=== PATIENT | female | born 1950 | race Caucasian/White ===

== ENCOUNTER → 2016-08-21 | Outpatient (CLI) | payer OTHER ==
[~2016-08-21] MED LIST: BIOTIN 1000MCG PO; CHOL100010 PO; CYCL0.05 OP; LORA-741 PO; LOSA1TAB38 PO; MECL1TAB42 PO; METO-217 PO; METR0.754; NYST1POW7; OMEGA 3/FISH OIL PO; OMEP20TA PO; TRIA0.1C55; VALA1TAB2 PO
--- NOTE | 2016-08-21 12:04 | DIAGNOSTIC IMAGING REPORT ---
VIDEO SWALLOW HISTORY: DYSPHAGIA TECHNIQUE: Video fluoroscopic evaluation of swallowing was performed in the AP and lateral projections by the speech pathology staff. The patient is fed nectar-thick and thin liquid barium, a barium coated wafer, and barium pudding. FLUOROSCOPY TIME: 1.4 minutes. A cine loop was submitted. COMPARISON STUDY: None. FINDINGS: There is normal hyoid excursion and epiglottic deflection. A few episodes of penetration without aspiration. There is mild vallecular residue seen within the majority of the study. Mild esophageal dysmotility. IMPRESSION: 1. No aspiration identified. 2. Please see the speech pathologist report for detailed findings and recommendations. Electronically signed by: Star Zazueta M.D. 08/21/2016 12:02 PM Dictated Date/Time: 08/21/2016 12:00 PM
--- NOTE | 2016-08-21 12:15 | SWALLOWING EVALUATION ---
HISTORY: This 65 year-old woman, from home, was referred for a VFSS at [facility] secondary to complaints of feeling pain in her throat on occasion when swallowing. She states that no food in particular given her difficulty but that she often feels the pain when she "gulps" her morning coffee. Currently the patient's diet level is regular with thins. PROCEDURE: The patient was seen in the Radiology Department of [facility] for the VFSS. Cursory examination of the oral cavity revealed adequate dentition. Movement of the articulators was WNL. The patient was seated on a standard chair and was viewed in both the Anterior-Posterior (A-P) and Lateral planes. Volitional phonation exercises completed in the A-P plane revealed bilateral vocal fold movement and vocal intensity within functional limits. In the lateral plane, the patient was given the following barium-infused boluses: 1 tsp thin barium with oral hold 1x, self presented single cup swallow-thin barium 1x, self presented serial cup swallow 1x. 1 tsp nectar thick barium with oral hold 1x, self presented single cup swallow- nectar thick barium 1x, self presented serial cup swallows 1x. 1 tsp barium pudding-self presented 1x. Cracker with barium paste 1x. In the A-P view, pt was given 1 tsp nectar thick barium and 1 tsp barium pudding with esophageal scan. RESULTS: Oral Phase: Pt. had no labial escape of any food or liquid items presented. Pt. demonstrated a cohesive bolus between tongue and palatal seal. Timely and efficient chewing and mashing was observed with all consistencies as well as brisk tongue motion and complete oral clearance. Initiation of pharyngeal swallow began with bolus head at posterior angle of hyoid excursion. Overall WFL for oral phase of swallow. Pharyngeal Phase: Soft Palate Elevation was complete for all boluses. Laryngeal elevation was WFL demonstrating complete movement of thyroid cartilage with complete approximation of arytenoids to epiglottic base. Complete Anterior Hyoid excursion was observed as well as complete epiglottic inversion. Laryngeal Vestibular closure was complete and no air or barium noted in laryngeal vestibule. Tongue base retraction was noted with all consistencies and tongue base made effective contact with posterior pharyngeal wall throughout study. No pharyngeal residue was observed resulting in complete pharyngeal clearance of all tested items. Esophageal Phase: Opening and closing of the UES was timely and efficient. GRAIN MERCHANDISER noted some esophageal dysmotility which would be contributing to his complaints of food sticking in his throat. . SUMMARY/RECOMMENDATIONS: Overall pt. presented as WFL. Results of this study indicate no oral or pharyngeal dysphagia. Recommending continuation of regular "slippery" diet with thin liquids. All results and recommendations were discussed with the pt. at length and written diet material with GERD precautions provided. Thank you for referral of this patient. Please contact me at if any additional information is needed.
== END | disposition home or self-care (01) ==
LOC: C.RAD 11:16
PROVIDERS: ATTEND Otolaryngology
DX: R13.10 Dysphagia, unspecified (principal)

== ENCOUNTER 2022-01-23 18:10 | Observation (INO) ==
[2022-01-23 19:00] LABS: Basophils # (auto) 0.08 K/uL (0-0.2); Basophils % (auto) 0.6 %; Eosinophils # (auto) 0.13 K/uL (0-0.50); Eosinophils % (auto) 0.9 %; Hematocrit (blood only) 35.7 % (34.1-44.9); Hemoglobin 12.1 g/dl (12.0-16.0); Immature Granulocytes # (auto) 0.09 K/uL (0.00-0.02); Immature Granulocytes % (auto) 0.6 %; Mean Corpuscular Hemoglobin 29.1 pg (25.0-34.0); Mean Corpuscular Hgb Conc 33.9 g/dL (32.0-36.0); Mean Corpuscular Volume 85.8 fL (80.0-100.0); Mean Platelet Volume 9.4 fL (9.4-12.3); Monocytes # (auto) 1.14 K/uL (0.24-0.82); Neutrophils # (auto) 9.09 K/uL (1.4-6.5); Neutrophils % (auto) 63.9 %; Platelet Count 340 K/uL (130-400); RDW Coefficient of Variation 13.5 % (11.5-14.5); RDW Standard Deviation 42.3 fL (36.4-46.3); Red Blood Count 4.16 M/uL (3.93-5.22); White Blood Count 14.23 K/ul (4.8-10.8)
[2022-01-23 19:23] LABS: Albumin Globulin Ratio 1.3 (0.9-2); Albumin Level 4.5 gm/dl (3.4-5.0); BUN Creatinine Ratio 23.1 (10-20); Bilirubin,Total 0.9 mg/dl (0.2-1.0); Calcium 9.6 mg/dl (8.5-10.1); Creatinine Clr Calc Pharmacy 65.6 ml/min; Globulin 3.6 gm/dl (2.5-4.0); Potassium 3.5 mmol/L (3.5-5.1); Total Protein 8.1 gm/dl (6.0-8.3)
[2022-01-23] MEDS ORDERED: SODIUM CHLORIDE 0.9% 1000ML 1,000 ML IV ONE (23:29)
[2022-01-23] MEDS ORDERED: PIPERACILLIN/TAZOBACTAM 4.5 GM/120 ML BAG IV ONE (23:29)
[2022-01-23] MEDS ORDERED: ACETAMINOPHEN 1,000 MG/100 ML VIAL IV STA (23:29)
--- NOTE | 2022-01-24 00:02 | History & Physical Report ---
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 intake/home diuretic Rx difficult intubation as per records GMF Bowel rest Zosyn Surgery consult Re: Complicated diverticulitis IVF, hold home diuretic for now while patient n.p.o. Basal bolus insulin adjusted for n.p.o. status, ISS BG goal 1 10-1 40, update hemoglobin A1c DVT prophylaxis. Lovenox subcu Full code Text document was generated using [employer] voice recognition software. It may contain grammatical or spelling errors. Kindly contact undersigned for clarification of any documentation item in question. History of Present Illness Chief Complaint: abdominal pain Primary Care Provider: Dr. Farmer History obtained from patient, family, and records. Medical history significant for hypertension, hyperlipidemia, DM2 on oral medications, GERD, colonic diverticulosis, difficult intubation as per records. Last confinement 2011 for flulike symptoms attributed to EBV infection and Lyme disease. 1 week history of achy left lower abdominal pain without black/bloody stools. Patient with nausea, no emesis. Fever, no chills. No prior episodes. Poor appetite. Outpatient COVID-19 test was negative. Patient seen at PCP's office yesterday. Outpatient CT abdomen pelvis showed : 1. Findings of acute diverticulitis with a 1.4 cm intramural abscess versus phlegmonous change. No drainable collection or intraperitoneal free air. 2. Small hiatal hernia. Patient directed to ER for evaluation. IV Zosyn administered at the ER. 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 Allergies Allergy/AdvReac Type Severity Reaction Status Date / Time adhesive Allergy Intermediate BLISTERS Verified 01/24/22 00:23 ibuprofen Allergy Unknown enlarged Verified 01/24/22 00:23 liver ketorolac Allergy Unknown Unknown Verified 01/24/22 00:23 Sulfa (Sulfonamide Allergy Unknown Rash Verified 01/24/22 00:23 Antibiotics) Nitrofuran Analogues AdvReac Intermediate UNCERTAIN Unverified 01/24/22 00:23 aspirin AdvReac Unknown Unknown Verified 01/24/22 00:23 Home Medications Medication Instructions Recorded Confirmed Type cholecalciferol (vitamin D3) 25 50 mcg PO QAM 08/15/19 01/24/22 History mcg (1,000 unit) tablet (Vitamin D3) hydrochlorothiazide 25 mg tablet 25 mg PO QAM 08/15/19 01/24/22 History losartan 100 mg tablet 100 mg PO QAM 08/15/19 01/24/22 History magnesium 250 mg tablet 250 mg PO HS 08/15/19 01/24/22 History metoprolol succinate 50 mg 100 mg PO QAM 08/15/19 01/24/22 History tablet,extended release 24 hr metronidazole 0.75 % topical cream 1 applic topical BID 08/15/19 01/24/22 History (MetroCream) omeprazole 20 mg delayed 20 mg PO QAM 08/15/19 01/24/22 History release,disintegrating tablet rosuvastatin 10 mg tablet 10 mg PO QAM 08/15/19 01/24/22 History acetaminophen 500 mg tablet 1,000 mg PO Q6H PRN Pain 01/24/22 01/24/22 History (Tylenol Extra Strength) aspirin 81 mg tablet,delayed 81 mg PO DAILY 01/24/22 01/24/22 History release biotin 400 mcg tablet 400 mcg PO DAILY 01/24/22 01/24/22 History cyclosporine 0.05 % eye drops in a 1 drp OPB [facility] 01/24/22 01/24/22 History dropperette (Restasis) metformin 500 mg tablet,extended 500 mg PO BID 01/24/22 01/24/22 History release 24 hr Past Med/Surg History Medical History (Updated 01/24/22 @ 03:26 by Michael Brantley MD) Diabetes mellitus, type 2 Diverticular disease GERD (gastroesophageal reflux disease) Hyperlipidemia Hypertension Osteoarthritis PVC (premature ventricular contraction) METOPROLOL FOR THIS Surgical History Difficult airway for intubation DURING VEIN STRIPPING PROCEDURE > 10 YRS AGO [place] > PT WASN'T GIVEN DETAILS ABOUT THIS BUT WAS TOLD THIS H/O vein stripping BILAT History of section X3 History of repair of rotator cuff RIGHT History of tonsillectomy Hx of hernia repair Family History Mother Colon cancer Diabetes Father Diabetes Sister Diabetes Social History Smoking Status: Never smoker Second Hand Exposure: No; Hx Alcohol Use: Yes Alcohol type: beer and wine Hx Substance Use: No Preferred Language: Romansh Communication Ability: Effective Golf Club Weigher Required: No Beliefs That Will Affect Care: None Current Living Situation: Spouse Feels Safe at Home: Yes Assistive Devices: Hearing Aid - Bilateral Review of Systems Review of Systems: As per HPI, all other systems reviewed and negative Physical Exam Physical Exam: GENERAL: Comfortable, pleasant, looks younger for stated age, no respiratory distress SKIN: Normal color, warm HEENT: [place] palpebral conjunctivae, no ptosis, dry buccal mucosa NECK : Supple, no tenderness CHEST : CTA, no tenderness HEART : RRR, no obvious murmurs ABDOMEN: Some distention, left-sided abdominal tenderness EXTREMITIES : Minimal LE swelling, no LE tenderness, no other conspicuous deformities noted NEUROLOGIC : Coherent, no facial asymmetry, no other gross focality Results & Data Results & Data ([facility]) Vital Signs (Past 12 Hours) Vital Signs Temp Pulse Resp BP Pulse Ox O2 Del Method 01/23/22 18:15 36.6 C 88 18 115/75 93 Room Air Laboratory Results Laboratory Results WBC 14.23 K/ul (4.8-10.8) H 01/23/22 18:46 RBC 4.16 M/uL (3.93-5.22) 01/23/22 18:46 Hgb 12.1 g/dl (12.0-16.0) 01/23/22 18:46 Hct 35.7 % (34.1-44.9) 01/23/22 18:46 MCV 85.8 fL (80.0-100.0) 01/23/22 18:46 MCH 29.1 pg (25.0-34.0) 01/23/22 18:46 MCHC 33.9 g/dL (32.0-36.0) 01/23/22 18:46 RDW Std Deviation 42.3 fL (36.4-46.3) 01/23/22 18:46 RDW Coeff of Luh 13.5 % (11.5-14.5) 01/23/22 18:46 Plt Count 340 K/uL (130-400) 01/23/22 18:46 MPV 9.4 fL (9.4-12.3) 01/23/22 18:46 Immature Gran % (Auto) 0.6 % 01/23/22 18:46 Neut % (Auto) 63.9 % 01/23/22 18:46 Lymph % (Auto) 26.0 % 01/23/22 18:46 [place] % (Auto) 8.0 % 01/23/22 18:46 Eos % (Auto) 0.9 % 01/23/22 18:46 Baso % (Auto) 0.6 % 01/23/22 18:46 Neut # (Auto) 9.09 K/uL (1.4-6.5) H 01/23/22 18:46 Lymph # (Auto) 3.70 K/uL (1.2-3.4) H 01/23/22 18:46 [place] # (Auto) 1.14 K/uL (0.24-0.82) H 01/23/22 18:46 Eos # (Auto) 0.13 K/uL (0-0.50) 01/23/22 18:46 Baso # (Auto) 0.08 K/uL (0-0.2) 01/23/22 18:46 Immature Gran # (Auto) 0.09 K/uL (0.00-0.02) H 01/23/22 18:46 Sodium 130 mmol/L (136-145) L 01/23/22 18:46 Potassium 3.5 mmol/L (3.5-5.1) 01/23/22 18:46 Chloride 94 mmol/L (98-107) L 01/23/22 18:46 Carbon Dioxide 26 mmol/L (21-32) 01/23/22 18:46 Anion Gap 10 (3-11) 01/23/22 18:46 BUN 18 mg/dl (6-23) 01/23/22 18:46 Creatinine 0.78 mg/dl (0.6-1.2) 01/23/22 18:46 Est Cr Clr Drug Dosing 65.6 ml/min 01/23/22 18:46 Est GFR ( Amer) 88.0 ml/min 01/23/22 18:46 Est GFR (Non-Af Amer) 76.0 ml/min 01/23/22 18:46 BUN/Creatinine Ratio 23.1 (10-20) H 01/23/22 18:46 Glucose 125 mg/dl (70-99(Fasting)) H 01/23/22 18:46 Calcium 9.6 mg/dl (8.5-10.1) 01/23/22 18:46 Total Bilirubin 0.9 mg/dl (0.2-1.0) 01/23/22 18:46 AST 12 U/L (13-39) L 01/23/22 18:46 ALT 12 U/L (7-52) 01/23/22 18:46 Alkaline Phosphatase 60 U/L (34-104) 01/23/22 18:46 Total Protein 8.1 gm/dl (6.0-8.3) 01/23/22 18:46 Albumin 4.5 gm/dl (3.4-5.0) 01/23/22 18:46 Globulin 3.6 gm/dl (2.5-4.0) 01/23/22 18:46 Albumin/Globulin Ratio 1.3 (0.9-2) 01/23/22 18:46 Lipase 25 U/L (11-82) 01/23/22 18:46
[2022-01-24] MEDS ORDERED: SODIUM CHLORIDE 0.9% 1000ML 1,000 ML IV STA (00:29)
--- NOTE | 2022-01-24 01:41 | Surgery Consultation ---
Date of Consultation January 24, 2022 Assessment & Plan (1) Diverticulitis: Patient has been admitted on the hospitalist service. We recommend proceeding as follows: Implement n.p.o. status Provide IV fluid for hydration Continue antibiotic therapy. The patient has received Zosyn in the emergency department Provide analgesics Provide antiemetics I discussed with the patient that it would be ideal to treat this in a nonconservative manner as emergent surgical intervention would likely necessitate a temporary colostomy. Patient would like to avoid this so discussed we will treat her in the above-noted manner. Would recommend following serial labs Would consider reimaging the patient if clinical improvement is not noted with the above measures Additional recommendations be forthcoming based on her clinical course as it unfolds Supervising Physician Co-Signing Physician Notes As per Ariel Lynn physician care team assistant Patient started experience some abdominal pain a week ago progressively got worse last bowel movement was yesterday formed She had colonoscopy 2 years ago found to have polyps she is on the recall list in 3 years The abdomen softly distended tender in the suprapubic and left lower quadrant Patient is not nauseated at this time she is on broad-spectrum antibiotic we will keep her n.p.o. until some GI function returns likely be in the hospital 3 to 4 days most likely be discharged home for another week or so of antibiotic Dr. Fischer covering this weekend History of Present Illness Reason for Consultation: Diverticulitis History of Present Illness This is 71-year-old female who presented to [facility] secondary to diverticular disease. Patient notes that approximately 1 week ago she developed abdominal pain in the left lower quadrant. She did not note any radiation or modifying factors of the pain. She did report nausea without v omiting. She said that the pain waxed and waned and somewhat remitted but then few days ago the pain returned. She was seen by her primary care team who ordered an outpatient CT scan which showed diverticulitis. Because of this she was referred to the emergency department. With her current presentation she denies any fevers, shakes, or chills but does note some generalized fatigue. Concerning prior abdominal surgery she has had a as well as a herniorrhaphy. The patient notes her most recent colonoscopy was in 2019. This was reviewed which showed the patient was noted to have diverticular disease without diverticulitis. She also had 2 polyps removed at this time. Patient did have a CT scan as an outpatient. I was unable to see the actual images but report showed that patient had findings consistent with acute diverticulitis with a 1.4 cm intramural abscess/phlegmonous change. There is no drainable collection or intraperitoneal free air. The patient did have labs in the emergency department that showed a white blood cell count was elevated at 14.2. Hemoglobin, hematocrit, and platelet count were normal. Chemistry profile showed sodium was 130 with a potassium that was normal. BUN and creatinine were noted to be normal. A COVID test was noted to be negative. At the time of my interview the patient was resting comfortably in bed and she was in no distress. Allergies Allergy/AdvReac Type Severity Reaction Status Date / Time adhesive Allergy Intermediate BLISTERS Verified 01/24/22 00:23 ibuprofen Allergy Unknown enlarged Verified 01/24/22 00:23 liver ketorolac Allergy Unknown Unknown Verified 01/24/22 00:23 Sulfa (Sulfonamide Allergy Unknown Rash Verified 01/24/22 00:23 Antibiotics) Nitrofuran Analogues AdvReac Intermediate UNCERTAIN Unverified 01/24/22 00:23 aspirin AdvReac Unknown Unknown Verified 01/24/22 00:23 Home Medications Medication Instructions Recorded Confirmed Type cholecalciferol (vitamin D3) 25 50 mcg PO QAM 08/15/19 01/24/22 History mcg (1,000 unit) tablet (Vitamin D3) hydrochlorothiazide 25 mg tablet 25 mg PO QAM 08/15/19 01/24/22 History losartan 100 mg tablet 100 mg PO QAM 08/15/19 01/24/22 History magnesium 250 mg tablet 250 mg PO HS 08/15/19 01/24/22 History metoprolol succinate 50 mg 100 mg PO QAM 08/15/19 01/24/22 History tablet,extended release 24 hr metronidazole 0.75 % topical cream 1 applic topical BID 08/15/19 01/24/22 History (MetroCream) omeprazole 20 mg delayed 20 mg PO QAM 08/15/19 01/24/22 History release,disintegrating tablet rosuvastatin 10 mg tablet 10 mg PO QAM 08/15/19 01/24/22 History acetaminophen 500 mg tablet 1,000 mg PO Q6H PRN Pain 01/24/22 01/24/22 History (Tylenol Extra Strength) aspirin 81 mg tablet,delayed 81 mg PO DAILY 01/24/22 01/24/22 History release biotin 400 mcg tablet 400 mcg PO DAILY 01/24/22 01/24/22 History cyclosporine 0.05 % eye drops in a 1 drp OPB [facility] 01/24/22 01/24/22 History dropperette (Restasis) metformin 500 mg tablet,extended 500 mg PO BID 01/24/22 01/24/22 History release 24 hr Patient History Medical History (Updated 01/24/22 @ 03:26 by Michael Brantley MD) Diabetes mellitus, type 2 Diverticular disease GERD (gastroesophageal reflux disease) Hyperlipidemia Hypertension Osteoarthritis PVC (premature ventricular contraction) METOPROLOL FOR THIS Surgical History Difficult airway for intubation DURING VEIN STRIPPING PROCEDURE > 10 YRS AGO [place] > PT WASN'T GIVEN DETAILS ABOUT THIS BUT WAS TOLD THIS H/O vein stripping BILAT History of section X3 History of repair of rotator cuff RIGHT History of tonsillectomy Hx of hernia repair Family History Mother Colon cancer Diabetes Father Diabetes Sister Diabetes Social History Smoking Status: Never smoker Second Hand Exposure: No; Hx Alcohol Use: Yes Alcohol type: beer and wine Hx Substance Use: No Preferred Language: Polish Communication Ability: Effective Waxer Operator Required: No Beliefs That Will Affect Care: None Current Living Situation: Spouse Feels Safe at Home: Yes Assistive Devices: Hearing Aid - Bilateral Review of Systems Constitutional: no fever and no chills Eyes: no diplopia Ear, Nose, Mouth, Throat: no ear pain Respiratory: no cough Cardiovascular: no chest pain Gastrointestinal: + abdominal pain and + nausea; no vomiting Genitourinary: no dysuria Musculoskeletal: no back pain Integumentary: no rash Neurologic: no localized weakness Physical Exam Constitutional: WD/WN, vitals as above Eyes: no conjunctival abnormality ENMT: Ears: no hearing impairment and no external ear abnormality Mouth: no oropharynx abnormality Neck: trachea midline Respiratory: normal respiratory effort; no respiratory distress and no labored breathing Cardiovascular: Rate/Rhythm: regular rate and regular rhythm Gastrointestinal (Abdomen): Abdomen is soft with mild distention. Bowel sounds are present. There is pain with palpation noted greatest in the left lower quadrant. Musculoskeletal: No calf tenderness Skin: no rashes Neurologic: moves all extremities Psychiatric: A+Ox3, euthymic affect Results & Data ([facility]) Vital Signs (Past 12 Hours) Vital Signs Temp Pulse Resp BP Pulse Ox O2 Del Method 01/23/22 18:15 36.6 C 88 18 115/75 93 Room Air PG Care Time/CCT Total # of Minutes Spent Total Time Spent with Patient: Total time spent is greater than 50% in coordination of care (as documented) at patient's floor/unit and/or counseling patient: Coding Level of Care Code 19868 Inpt Consult Level 5 Diagnoses Diverticulitis K57.92
[2022-01-24] MEDS ORDERED: GLUCOSE 10 TAB/TUBE PO PRN (02:03)
[2022-01-24] MEDS ORDERED: CARBOHYDRATES FOR HYPOGLYCEMIA PO PRN (02:03)
[2022-01-24] MEDS ORDERED: oxyCODONE HCL IR 5 MG TAB (IMMEDIATE RELEASE) PO PRN (02:03)
[2022-01-24] MEDS ORDERED: PROMETHAZINE HCL 12.5 MG in SODIUM CHLORIDE 0.9% 50 ML IV PRN (02:03)
[2022-01-24] MEDS ORDERED: GLUCOSE 40% GEL 15 GM TUBE PO PRN (02:03)
[2022-01-24] MEDS ORDERED: MoRPHine SULFATE 4 MG/ML 1 ML CARP\\VIAL IV PRN (02:03)
[2022-01-24] MEDS ORDERED: SODIUM CHLORIDE 0.9% 1000ML 1,000 ML IV ONE (02:03)
[2022-01-24] MEDS ORDERED: DEXTROSE 50% 50 ML SYRINGE IV PRN (02:03)
[2022-01-24] MEDS ORDERED: GLUCAGON FOR INJ 1 MG VIAL SQ PRN (02:03)
[2022-01-24 06:29] LABS: Basophils # (auto) 0.08 K/uL (0-0.2); Basophils % (auto) 0.9 %; Eosinophils # (auto) 0.25 K/uL (0-0.50); Eosinophils % (auto) 2.7 %; Hematocrit (blood only) 32.9 % (34.1-44.9); Hemoglobin 10.9 g/dl (12.0-16.0); Immature Granulocytes # (auto) 0.05 K/uL (0.00-0.02); Immature Granulocytes % (auto) 0.5 %; Lymphocytes # (auto) 3.35 K/uL (1.2-3.4); Lymphocytes % (auto) 36.4 %; Mean Corpuscular Hemoglobin 29.1 pg (25.0-34.0); Mean Corpuscular Hgb Conc 33.1 g/dL (32.0-36.0); Mean Platelet Volume 9.3 fL (9.4-12.3); Monocytes # (auto) 0.73 K/uL (0.24-0.82); Monocytes % (auto) 7.9 %; Neutrophils # (auto) 4.74 K/uL (1.4-6.5); Neutrophils % (auto) 51.6 %; Platelet Count 260 K/uL (130-400); RDW Coefficient of Variation 13.5 % (11.5-14.5); RDW Standard Deviation 43.9 fL (36.4-46.3); Red Blood Count 3.74 M/uL (3.93-5.22)
[2022-01-24 07:06] LABS: BUN Creatinine Ratio 19.7 (10-20); Calcium 8.4 mg/dl (8.5-10.1); Creatinine Clr Calc Pharmacy 72.1 ml/min; Est GFR (African American) 98.6 ml/min; Est GFR (Non-African American) 85.1 ml/min; Potassium 3.4 mmol/L (3.5-5.1)
[2022-01-24] MEDS: PIPERACILLIN/TAZOBACTAM 3.375 GM in DEXTROSE 5% 100 ML IV SCH ×3 (07:31→22:01)
[2022-01-24 07:33] LABS: Estimated Average Glucose 166 mg/dl; Hemoglobin A1C 7.4 % (4.5-5.6)
[2022-01-24] MEDS: PANTOprazole 40 MG TAB PO SCH (08:40)
[2022-01-24] MEDS: ENOXAPARIN INJ 40 MG/0.4 ML SYR SQ SCH (08:40)
[2022-01-24] MEDS: ASPIRIN 81 MG ECTAB PO SCH (08:40)
[2022-01-24] MEDS: INSULIN ASPART PER UNIT SC SCH ×4 (08:43→23:57)
--- NOTE | 2022-01-24 08:44 | XRay Report ---
XR chest 1V portable HISTORY: hyponatremia COMPARISON: Chest 10/21/2011. FINDINGS: No pneumothorax. No pleural effusions. The cardiac silhouette is top normal in size. No foc al lung consolidations to suggest pneumonia. No evidence for pulmonary edema. IMPRESSION: No acute process. ACT 112: Negative or not required by law. Electronically signed by: Star Zazueta M.D. 01/24/2022 8:43 AM
[2022-01-24] MEDS: LOSARTAN POTASSIUM 50 MG TAB PO SCH (09:30)
[2022-01-24] MEDS: METOPROLOL SUCC 50MG EXT REL TAB PO SCH (09:30)
[2022-01-24] MEDS: ROSUVASTATIN CALCIUM 10 MG TAB PO SCH (09:31)
[2022-01-24] MEDS ORDERED: POTASSIUM CHLORIDE CRTAB 20 MEQ TABCR PO STA (10:30)
[2022-01-24] MEDS: ACETAMINOPHEN 325 MG TAB PO PRN ×3 (11:31→22:01)
--- NOTE | 2022-01-24 16:52 | Hospitalist Progress Note ---
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 She is being managed for the following: Diverticulitis with possible intramural abscess Patient had 1 week history of achy left lower abdominal pain without black/bloody stool and received outpatient CT abdominal pelvis which showed diverticulitis with 1.4 cm intramural abscess versus phlegmonous change and she was directed to the ED. Continue with Zosyn 01/24. Patient afebrile. Patient reports improvement in her LLQ pain, patient remains n.p.o., diet per surgery recommendation. Continue pain control and IV hydration. Nausea control as needed. Surgery on board, appreciate recommendations. Mild hyponatremia: Likely due to decreased p.o. intake secondary to belly pain, expect to improve with improvement in p.o. intake. Other chronic medical conditions: HTN, HLD, DM2 on oral meds --> continue with/resume home meds as and when appropriate. Diuretic on hold while patient NPO. DVT prophylaxis: Lovenox subcu Full code Admission and Anticipated Discharge Date Admission Date: January 24, 2022 Subjective Patient seen and examined at bedside as a follow-up of diverticular disease of large intestine with complication. Patient was lying in bed, on room air, NAD, no new acute events overnight. Patient reports left lower belly pain getting better, down from 7/10 to 3/10 at bedside exam. Patient remains n.p.o. Patient on IV fluid. Patient reports feeling better. Patient denies headache/dizziness/chest pain/palpitation/sore throat/cough/fever/other review of symptoms. Physical Exam Physical Exam: GENERAL: Alert and oriented x3. NAD, on RA. HEENT: No pallor, no icterus. Pupils equal, round and reactive to light. Oral mucosa moist. NECK: No JVD, no neck masses. HEART: S1 and S2 heard. Regular rate and rhythm. No murmur, no gallop. RESPIRATORY SYSTEM: Normal AP diameter. No accessory muscle use. No wheezing, no crackles. ABDOMEN: Soft, bowel sounds present, minimal LLQ tender, no distention. CENTRAL NERVOUS SYSTEM: No facial droop. Speech is clear. Obeys simple commands. Moves extremities. EXTREMITIES: No edema, no erythema seen. Results & Data Results & Data ([facility]) Vital Signs (Past 12 Hours) Vital Signs Temp Pulse Resp BP Pulse Ox O2 Del Method O2 Flow Rate 01/24/22 15:19 36.6 C 70 20 143/68 H 98 Room Air 01/24/22 13:30 36.4 C L 76 20 139/68 97 Room Air 01/24/22 11:40 76 20 136/75 98 01/24/22 10:03 36.8 C 01/24/22 06:00 96 Nasal Cannula 2
[2022-01-24] MEDS: SODIUM CHLORIDE 0.9% 1000ML 1,000 ML IV SCH (18:43)
[2022-01-24] MEDS ORDERED: Nursing to Pharmacy Communication SCH (19:15)
[2022-01-25] MEDS: PIPERACILLIN/TAZOBACTAM 3.375 GM in DEXTROSE 5% 100 ML IV SCH ×3 (05:24→21:37)
[2022-01-25] MEDS: INSULIN ASPART PER UNIT SC SCH ×4 (05:33→20:58)
[2022-01-25 06:15] LABS: Hematocrit (blood only) 35.1 % (34.1-44.9); Hemoglobin 11.4 g/dl (12.0-16.0); Mean Corpuscular Hemoglobin 28.6 pg (25.0-34.0); Mean Corpuscular Hgb Conc 32.5 g/dL (32.0-36.0); Mean Corpuscular Volume 88.2 fL (80.0-100.0); Mean Platelet Volume 9.2 fL (9.4-12.3); Platelet Count 328 K/uL (130-400); RDW Coefficient of Variation 13.3 % (11.5-14.5); RDW Standard Deviation 43.7 fL (36.4-46.3); Red Blood Count 3.98 M/uL (3.93-5.22); White Blood Count 6.98 K/ul (4.8-10.8)
[2022-01-25 06:37] LABS: BUN Creatinine Ratio 15.2 (10-20); Calcium 8.7 mg/dl (8.5-10.1); Creatinine Clr Calc Pharmacy 77.5 ml/min; Est GFR (African American) 102.3 ml/min; Est GFR (Non-African American) 88.3 ml/min; Magnesium 2.1 mg/dl (1.7-2.4); Phosphorus 2.9 mg/dl (2.5-4.9); Potassium 3.9 mmol/L (3.5-5.1)
--- NOTE | 2022-01-25 08:11 | Surgery Progress Note ---
Date of Service January 25, 2022 Assessment & Plan (1) Diverticulitis: Plan: improved WBC normal start clears, advance to low fiber over next 24-48 hours she would like a probiotic continue Zosyn Admission and Anticipated Discharge Date Admission Date: January 24, 2022 Supervising Physician Co-Signing Physician Notes pnt S&E, agree with above. diverticulitis with phlegmon. Pain improved, tolerating clears, +bm. afvss, abd with mild ttp in llq, improved, wbc normal. slowly advance to low fiber diet as tolerated. will transition to oral abx, possible d/c sun/mon. Subjective much better, some flatus no further BM, no fever/chills Physical Exam Constitutional: WD/WN, vitals as above Gastrointestinal (Abdomen): Inspection/Auscultation: abdomen not distended Percussion/Palpation: + abdomen tender (LLQ, less) and abdomen soft; no guarding Results & Data ([facility]) Vital Signs (Past 12 Hours) Vital Signs Temp Pulse Resp BP Pulse Ox O2 Del Method 01/25/22 08:06 36.7 C 57 L 18 159/82 H 96 Room Air 01/24/22 23:54 36.7 C 55 L 17 111/67 94 Room Air PG Care Time/CCT Total # of Minutes Spent Total Time Spent with Patient: Total time spent is greater than 50% in coordination of care (as documented) at patient's floor/unit and/or counseling patient: Coding Level of Care Code 56025 Subseq Hosp Care Lvl 1 Diagnoses Diverticulitis K57.92
[2022-01-25] MEDS: ASPIRIN 81 MG ECTAB PO SCH (09:41)
[2022-01-25] MEDS: PANTOprazole 40 MG TAB PO SCH (09:41)
[2022-01-25] MEDS: LOSARTAN POTASSIUM 50 MG TAB PO SCH (09:42)
[2022-01-25] MEDS: METOPROLOL SUCC 50MG EXT REL TAB PO SCH (09:43)
[2022-01-25] MEDS: ENOXAPARIN INJ 40 MG/0.4 ML SYR SQ SCH (09:43)
[2022-01-25] MEDS: ROSUVASTATIN CALCIUM 10 MG TAB PO SCH (09:44)
[2022-01-25] MEDS: SACCHAROMYCES BOULARDII 250 MG CAP PO SCH (09:49)
[2022-01-25] MEDS: SODIUM CHLORIDE 0.9% 1000ML 1,000 ML IV SCH (10:51)
--- NOTE | 2022-01-25 16:47 | Hospitalist Progress Note ---
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 She is being managed for the following: Diverticulitis with possible intramural abscess Patient had 1 week history of achy left lower abdominal pain without black/bloody stool and received outpatient CT abdominal pelvis which showed diverticulitis with 1.4 cm intramural abscess versus phlegmonous change and she was directed to the ED. Continue with Zosyn 01/24. Patient afebrile. Patient reports improvement in her LLQ pain, Pt started on clears, advance diet to low fiber as nat per Sx recs. Continue pain control. DC IVF. Nausea control as needed. Surgery on board, appreciate recommendations. Mild hyponatremia: Likely due to decreased p.o. intake secondary to belly pain, expect to improve with improvement in p.o. intake. Other chronic medical conditions: HTN, HLD, DM2 on oral meds --> continue with/resume home meds as and when appropriate. Diuretic on hold until diet improves. DVT prophylaxis: Lovenox subcu Full code Admission and Anticipated Discharge Date Admission Date: January 24, 2022 Subjective Patient seen and examined at bedside as a follow-up of diverticular disease of large intestine with complication. Patient was lying in bed, on room air, NAD, no new acute events overnight. Patient reports left lower belly pain getting better significantly, started on clears per Sx, reports moving BM ok. Patient reports feeling better. Patient denies headache/dizziness/chest pain/palpitation/sore throat/cough/fever/other review of symptoms. Physical Exam Physical Exam: GENERAL: Alert and oriented x3. NAD, on RA. HEENT: No pallor, no icterus. Pupils equal, round and reactive to light. Oral mucosa moist. NECK: No JVD, no neck masses. HEART: S1 and S2 heard. Regular rate and rhythm. No murmur, no gallop. RESPIRATORY SYSTEM: Normal AP diameter. No accessory muscle use. No wheezing, no crackles. ABDOMEN: Soft, bowel sounds present, minimal LLQ tender, no distention. CENTRAL NERVOUS SYSTEM: No facial droop. Speech is clear. Obeys simple commands. Moves extremities. EXTREMITIES: No edema, no erythema seen. Results & Data Results & Data ([facility]) Vital Signs (Past 12 Hours) Vital Signs Temp Pulse Resp BP Pulse Ox O2 Del Method 01/25/22 16:34 36.9 C 57 L 18 136/77 93 Room Air 01/25/22 09:39 63 163/75 H 01/25/22 08:06 36.7 C 57 L 18 159/82 H 96 Room Air
[2022-01-26 05:24] LABS: Hematocrit (blood only) 31.2 % (34.1-44.9); Hemoglobin 10.5 g/dl (12.0-16.0); Mean Corpuscular Hemoglobin 29.1 pg (25.0-34.0); Mean Corpuscular Hgb Conc 33.7 g/dL (32.0-36.0); Mean Corpuscular Volume 86.4 fL (80.0-100.0); Mean Platelet Volume 9.3 fL (9.4-12.3); Platelet Count 285 K/uL (130-400); RDW Coefficient of Variation 13.2 % (11.5-14.5); RDW Standard Deviation 41.5 fL (36.4-46.3); Red Blood Count 3.61 M/uL (3.93-5.22); White Blood Count 7.97 K/ul (4.8-10.8)
[2022-01-26] MEDS: PIPERACILLIN/TAZOBACTAM 3.375 GM in DEXTROSE 5% 100 ML IV SCH (05:33)
[2022-01-26 05:54] LABS: BUN Creatinine Ratio 9.2 (10-20); Calcium 8.8 mg/dl (8.5-10.1); Creatinine Clr Calc Pharmacy 67.3 ml/min; Est GFR (African American) 90.8 ml/min; Est GFR (Non-African American) 78.4 ml/min; Potassium 3.7 mmol/L (3.5-5.1)
[2022-01-26] MEDS: METOPROLOL SUCC 50MG EXT REL TAB PO SCH (08:46)
[2022-01-26] MEDS: PANTOprazole 40 MG TAB PO SCH (08:47)
[2022-01-26] MEDS: ASPIRIN 81 MG ECTAB PO SCH (08:47)
[2022-01-26] MEDS: LOSARTAN POTASSIUM 50 MG TAB PO SCH (08:47)
[2022-01-26] MEDS: ROSUVASTATIN CALCIUM 10 MG TAB PO SCH (08:48)
[2022-01-26] MEDS: SACCHAROMYCES BOULARDII 250 MG CAP PO SCH (08:48)
[2022-01-26] MEDS: ENOXAPARIN INJ 40 MG/0.4 ML SYR SQ SCH (08:49)
[2022-01-26] MEDS: ACETAMINOPHEN 325 MG TAB PO PRN (08:53)
[2022-01-26] MEDS: INSULIN ASPART PER UNIT SC SCH ×2 (09:03→12:56)
--- NOTE | 2022-01-26 09:38 | Surgery Progress Note ---
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 Abdominal symptoms improved WBC 7.9, pt afebrile Tolerating low fiber diet May dispo from our standpoint, complete course of abx (total 10 days) may transition to po meds No need for surgical f/u Outpt colonoscopy as scheduled on routine basis Admission and Anticipated Discharge Date Admission Date: January 24, 2022 Supervising Physician Co-Signing Physician Notes pnt S&E, agree with above. diverticulitis with phlegmon. Pain improved, tolerating low fiber, +bm. afvss, abd NT, wbc normal. transition to oral abx, okay for d/c today Subjective Patient feeling well. Abdominal pain improved. Feeling abdominal rumblings, + bowel function. Tolerating diet. Feels her face is warm, thinks she may be having a rosacea flair. Physical Exam Physical Exam: awake/alert, no distress Gastrointestinal (Abdomen): Percussion/Palpation: abdomen soft; abdomen nontender Results & Data ([facility]) Vital Signs (Past 12 Hours) Vital Signs Temp Pulse Resp BP Pulse Ox O2 Del Method 01/26/22 08:45 62 164/80 H 01/26/22 07:35 36.7 C 58 L 18 169/75 H 96 Room Air 01/25/22 22:10 36.8 C 59 L 18 144/66 H 95 Room Air PG Care Time/CCT Total # of Minutes Spent Total Time Spent with Patient: Total time spent is greater than 50% in coordination of care (as documented) at patient's floor/unit and/or counseling patient: Coding Level of Care Code 10077 Subseq Hosp Care Lvl 1 Diagnoses Diverticular disease of large intestine with complication K57.30
--- NOTE | 2022-01-26 13:30 | Discharge Summary ---
Date of Service January 26, 2022 Admission HPI Per Admitting Provider History obtained from patient, family, and records. Medical history significant for hypertension, hyperlipidemia, DM2 on oral medications, GERD, colonic diverticulosis, difficult intubation as per records. Last confinement 2011 for flulike symptoms attributed to EBV infection and Lyme disease. 1 week history of achy left lower abdominal pain without black/bloody stools. Patient with nausea, no emesis. Fever, no chills. No prior episodes. Poor appetite. Outpatient COVID-19 test was negative. Patient seen at PCP's office yesterday. Outpatient CT abdomen pelvis showed : 1. Findings of acute diverticulitis with a 1.4 cm intramural abscess versus phlegmonous change. No drainable collection or intraperitoneal free air. 2. Small hiatal hernia. Patient directed to ER for evaluation. IV Zosyn administered at the ER. 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 Admission Exam Per Admitting Provider GENERAL: Comfortable, pleasant, looks younger for stated age, no respiratory distress SKIN: Normal color, warm HEENT: [place] palpebral conjunctivae, no ptosis, dry buccal mucosa NECK : Supple, no tenderness CHEST : CTA, no tenderness HEART : RRR, no obvious murmurs ABDOMEN: Some distention, left-sided abdominal tenderness EXTREMITIES : Minimal LE swelling, no LE tenderness, no other conspicuous deformities noted NEUROLOGIC : Coherent, no facial asymmetry, no other gross focality Principal Diagnosis Diverticulitis with possible intramural abscess Hyponatremia, mild, resolved Discharge Exam GENERAL: Alert and oriented x3. NAD, on RA. HEENT: No pallor, no icterus. Pupils equal, round and reactive to light. Oral mucosa moist. NECK: No JVD, no neck masses. HEART: S1 and S2 heard. Regular rate and rhythm. No murmur, no gallop. RESPIRATORY SYSTEM: Normal AP diameter. No accessory muscle use. No wheezing, no crackles. ABDOMEN: Soft, bowel sounds present, minimal LLQ tender, no distention. CENTRAL NERVOUS SYSTEM: No facial droop. Speech is clear. Obeys simple commands. Moves extremities. EXTREMITIES: No edema, no erythema seen. 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 She was managed for the following: Diverticulitis with possible intramural abscess Patient had 1 week history of achy left lower abdominal pain without black/bloody stool and received outpatient CT abdominal pelvis which showed diverticulitis with 1.4 cm intramural abscess versus phlegmonous change and she was directed to the ED. Continue with Zosyn 01/24. Surgery on board, appreciate recommendations. Patient reports no LLQ tenderness, no nausea or vomiting, tolerating diet very well, normal bowel movements. Patient did not require any pain medication. Patient will be discharged on p.o. antibiotics and probiotics to complete the course. Mild hyponatremia: Likely due to decreased p.o. intake, resolved. Other chronic medical conditions: HTN, HLD, DM2 on oral meds --> continue with/resume home meds as and when appropriate. Diuretic on hold until diet improves. Full code Patient being discharged home with following instruction at the point of discharge: Follow-up with your primary care physician within a week time. Continue with soft low fiber diet for few days, gradually transition to your regular consistency diet. You will be discharged on antibiotics to complete the course and also on probiotic. Take your medications as prescribed. Total Time Total Time Spent Total Time Spent (In Minutes): 35 Discharge Plan Discharge Items Patient Disposition: Home - Self-Care Reason For Visit: COMPLICATED DIVERTICULITIS Discharge Diagnosis: Diverticulitis with possible intramural abscess Hyponatremia, mild, resolved Activity: Resume your previous activity Non-emergency contact: Primary Care Provider Call non-emergency contact if: you have any medication questions, your symptoms worsen, your pain is not controlled and your temperature is above 101.5 Follow-up/Referrals: Johana Green DO [Primary Care Provider] - Diet: Carb Consistent or DM2 and Low Fiber Addtl Attending Provider Instructions: Follow-up with your primary care physician within a week time. Continue with soft low fiber diet for few days, gradually transition to your regular consistency diet. You will be discharged on antibiotics to complete the course and also on probiotic. Take your medications as prescribed. Pending Studies at Discharge: No Stand-Alone Forms: My [facility] [employer], Smoking Cessation Medications and DC Order Prescriptions: New Saccharomyces boulardii [Florastor] 250 mg Capsule 250 mg PO DAILY 15 Days Qty: 15 0RF amoxicillin-pot clavulanate 875-125 mg tablet 1 tab PO BID 11 Days Qty: 22 0RF Continued metoprolol succinate 50 mg Tablet Extended Release 24 Hr 100 mg PO QAM metronidazole [MetroCream] 0.75 % Cream 1 applic TOPICAL BID magnesium 250 mg Tablet 250 mg PO HS hydrochlorothiazide 25 mg Tablet 25 mg PO QAM losartan 100 mg Tablet 100 mg PO QAM rosuvastatin 10 mg Tablet 10 mg PO QAM cholecalciferol (vitamin D3) [Vitamin D3] 25 mcg (1,000 unit) Tablet 50 mcg PO QAM omeprazole 20 mg Tablet,Disintegrat, Delay Rel 20 mg PO QAM aspirin [Aspir-Low] 81 mg Tablet,Delayed Release (Dr/Ec) 81 mg PO DAILY acetaminophen [Tylenol Extra Strength] 500 mg Tablet 1,000 mg PO Q6H PRN (Reason: Pain) metformin 500 mg tablet extended release 24 hr 500 mg PO BID Rx Instructions: hold until sat biotin 400 mcg Tablet 400 mcg PO DAILY cyclosporine [Restasis] 0.05 % dropperette 1 drp OPB [facility] Discharge Orders: Discharge Order (Routine); Ordered 01/26/22 Ordered By: Tamra Miller/Other Patient Handouts: Managing Type 2 Diabetes Admission Data Admit Date/Time: 01/24/22 00:23 Attending Provider: Tamra Quijano Admit Provider: Michael Brantley Primary Care Provider: Johana Green Other Providers: Michael Brantley ; Bhupinder Gregorio
--- NOTE | 2022-02-04 03:46 | Emergency Department Note ---
History of Present Illness General Chief complaint: Rectal Pain Stated complaint: ABCESS IN COLON Time Seen by Provider: 01/23/22 23:03 Source: patient Mode of arrival: ambulatory Limitations: no limitations History of Present Illness Provider complaint: Abdominal pain, abnormal outpatient CT Onset (ago): week(s) 1 Maximum Pain Intensity: 0 This is a 71-year-old female presents emergency department due to abdominal pain and an abnormal outpatient CT. Patient states she began not feeling well a week ago with lower abdominal pain and discomfort. No radiation to the back. She states pain is worse on the left side compared to the right. Patient states she did contact her PCP and was sent for outpatient labs and imaging today. Patient states was contacted and told to come to the emergency room due to the need for IV antibiotics. With the assistance of case management I was able to review patient's outpatient labs and imaging. Leukocytosis noted. These were reviewed with her at bedside. Patient's outpatient CT shows diverticulitis with small intramural abscess, no perforation, no active bleeding. IV started in the emergency room and I discussed with the patient likely need for additional inpatient evaluation and management. Pt seen during a time of high acuity and national emergency pandemic while wearing PPE. Home Medications Medication Instructions Recorded Confirmed Type cholecalciferol (vitamin D3) 25 50 mcg PO QAM 08/15/19 01/24/22 History mcg (1,000 unit) tablet (Vitamin D3) hydrochlorothiazide 25 mg tablet 25 mg PO QAM 08/15/19 01/24/22 History losartan 100 mg tablet 100 mg PO QAM 08/15/19 01/24/22 History magnesium 250 mg tablet 250 mg PO HS 08/15/19 01/24/22 History metoprolol succinate 50 mg 100 mg PO QAM 08/15/19 01/24/22 History tablet,extended release 24 hr metronidazole 0.75 % topical cream 1 applic topical BID 08/15/19 01/24/22 History (MetroCream) omeprazole 20 mg delayed 20 mg PO QAM 08/15/19 01/24/22 History release,disintegrating tablet rosuvastatin 10 mg tablet 10 mg PO QAM 08/15/19 01/24/22 History acetaminophen 500 mg tablet 1,000 mg PO Q6H PRN Pain 01/24/22 01/24/22 History (Tylenol Extra Strength) aspirin 81 mg tablet,delayed 81 mg PO DAILY 01/24/22 01/24/22 History release biotin 400 mcg tablet 400 mcg PO DAILY 01/24/22 01/24/22 History cyclosporine 0.05 % eye drops in a 1 drp OPB [facility] 01/24/22 01/24/22 History dropperette (Restasis) metformin 500 mg tablet,extended 500 mg PO BID 01/24/22 01/24/22 History release 24 hr Saccharomyces boulardii 250 mg 250 mg PO DAILY 15 days #15 caps 01/26/22 Rx capsule (Florastor) amoxicillin 875 mg-potassium 1 tab PO BID 11 days #22 tabs 01/26/22 Rx clavulanate 125 mg tablet Allergies Allergy/AdvReac Type Severity Reaction Status Date / Time adhesive Allergy Intermediate BLISTERS Verified 01/24/22 00:23 ibuprofen Allergy Unknown enlarged Verified 01/24/22 00:23 liver ketorolac Allergy Unknown Unknown Verified 01/24/22 00:23 Sulfa (Sulfonamide Allergy Unknown Rash Verified 01/24/22 00:23 Antibiotics) Nitrofuran Analogues AdvReac Intermediate UNCERTAIN Unverified 01/24/22 00:23 aspirin AdvReac Unknown Unknown Verified 01/24/22 00:23 Past Med/Surg History Medical History (Updated 02/04/22 @ 03:46 by Rubi Rizvi DO) Diabetes mellitus, type 2 Diverticular disease GERD (gastroesophageal reflux disease) Hyperlipidemia Hypertension Osteoarthritis PVC (premature ventricular contraction) METOPROLOL FOR THIS Surgical History Difficult airway for intubation DURING VEIN STRIPPING PROCEDURE > 10 YRS AGO [place] > PT WASN'T GIVEN DETAILS ABOUT THIS BUT WAS TOLD THIS H/O vein stripping BILAT History of section X3 History of repair of rotator cuff RIGHT History of tonsillectomy Hx of hernia repair Family History Mother Colon cancer Diabetes Father Diabetes Sister Diabetes Social History Smoking Status: Never smoker Second Hand Exposure: No; Hx Alcohol Use: No Hx Substance Use: No Preferred Language: Setswana Communication Ability: Effective Manager Cosmetic Required: No Beliefs That Will Affect Care: None Current Living Situation: Family Feels Safe at Home: Yes Assistive Devices: None Review of Systems A total of 10 systems reviewed and were otherwise negative All systems reviewed & are unremarkable except as noted in HPI & below Physical Exam GENERAL: alert, well appearing, well nourished, no distress, non-toxic EYE EXAM: normal conjunctiva, PERRL and EOM's grossly intact OROPHARYNX: no exudate, no erythema, lips, buccal mucosa, and tongue normal and mucous membranes are moist NECK: supple, no nuchal rigidity, no adenopathy, non-tender LUNGS: Clear to auscultation. Normal chest wall mechanics, no w/r/r HEART: no murmurs, S1 normal and S2 normal ABDOMEN: abdomen soft, non-tender, normo-active bowel sounds, no masses, no rebound or guarding. BACK: Back is symmetrical on inspection and there is no deformity, no midline tenderness, no CVA tenderness. SKIN: no rashes and no bruising UPPER EXTREMITIES: upper extremities are grossly normal. FROM, nml pulses b/l. LOWER EXTREMITIES: No pitting edema. FROM, nml pulses b/l. NEURO EXAM: Normal sensorium, cranial nerves II-XII grossly intact, normal sp eech, no gross weakness of arms, no gross weakness of legs. Gross sensation intact. Course Administered Medications Discontinued Medications Acetaminophen (Acetaminophen 325 Mg Tab) 650 mg PO Q4H PRN PRN Reason: pain/fever Stop: 02/23/22 02:02 Last Admin: 01/26/22 08:53 Dose: 650 mg Documented By: Admin: 01/24/22 22:01 Dose: 650 mg Documented By: Admin: 01/24/22 17:56 Dose: 650 mg Documented By: Admin: 01/24/22 11:31 Dose: 650 mg Documented By: AB Aspirin (Aspirin 81 Mg Ectab) 81 mg PO [facility] Stop: 02/23/22 08:59 Last Admin: 01/26/22 08:47 Dose: 81 mg Documented By: Admin: 01/25/22 09:41 Dose: 81 mg Documented By: Admin: 01/24/22 08:40 Dose: 81 mg Documented By: AB Enoxaparin Sodium (Enoxaparin Inj 40 Mg/0.4 Ml Syr) [facility] [place]: 02/23/22 08:59 Last Admin: 01/26/22 08:49 Dose: 40 mg Documented By: Admin: 01/25/22 09:43 Dose: 40 mg Documented By: Admin: 01/24/22 08:40 Dose: 40 mg Documented By: Piperacillin Sod/Tazobactam Sod (Zosyn) 4.5 gm in 120 mls @ 240 mls/hr IV NOW ONE Stop: 01/23/22 23:58 Last Infusion: 01/24/22 00:35 Dose: 0 mls/hr Documented By: Admin: 01/24/22 00:04 Dose: 240 mls/hr Documented By: JEYSON Sodium Chloride (Nss 1000ml) 1,000 mls @ 999 mls/hr IV .Q1H1M ONE Stop: 01/24/22 00:29 Last Infusion: 01/24/22 01:51 Dose: 0 mls/hr Documented By: Admin: 01/23/22 23:53 Dose: 999 mls/hr Documented By: JEYSON Acetaminophen (Ofirmev) 1,000 mg in 100 mls @ 400 mls/hr IV NOW STA Stop: 01/23/22 23:43 Last Infusion: 01/24/22 00:09 Dose: 0 mls/hr Documented By: Admin: 01/23/22 23:54 Dose: 400 mls/hr Documented By: JEYSON Sodium Chloride (Nss 1000ml) 1,000 mls @ 60 mls/hr IV .[id number] STA Stop: 01/24/22 17:08 Last Infusion: 01/24/22 18:44 Dose: 0 mls/hr Documented By: Admin: 01/24/22 01:11 Dose: 60 mls/hr Documented By: JEYSON Piperacillin Sod/Tazobactam (Sod 3.375 gm/ Dextrose) 115 mls @ 28.75 mls/hr IV Q8H [facility]; Protocol Stop: 02/03/22 05:59 Last Infusion: 01/26/22 09:35 Dose: 0 mls/hr Documented By: Admin: 01/26/22 05:33 Dose: 28.8 mls/hr Documented By: (2) Infusion: 01/26/22 01:40 Dose: 0 mls/hr Documented By: AB(2) Admin: 01/25/22 21:37 Dose: 28.8 mls/hr Documented By: (2) Infusion: 01/25/22 18:02 Dose: 0 mls/hr Documented By: Admin: 01/25/22 13:59 Dose: 28.8 mls/hr Documented By: Infusion: 01/25/22 10:32 Dose: 0 mls/hr Documented By: Admin: 01/25/22 05:24 Dose: 28.8 mls/hr Documented By: Infusion: 01/25/22 01:56 Dose: 0 mls/hr Documented By: Admin: 01/24/22 22:01 Dose: 28.8 mls/hr Documented By: Infusion: 01/24/22 18:43 Dose: 0 mls/hr Documented By: Admin: 01/24/22 14:38 Dose: 28.8 mls/hr Documented By: Infusion: 01/24/22 14:28 Dose: 0 mls/hr Documented By: Admin: 01/24/22 07:31 Dose: 28.8 mls/hr Documented By: Sodium Chloride (Nss 1000ml) 1,000 mls @ 60 mls/hr IV .[id number] [facility] Stop: 02/23/22 17:29 Last Infusion: 01/25/22 17:00 Dose: 0 mls/hr Documented By: Admin: 01/25/22 10:51 Dose: 60 mls/hr Documented By: Infusion: 01/25/22 10:51 Dose: 60 mls/hr Documented By: Admin: 01/24/22 18:43 Dose: 60 mls/hr Documented By: ERLIN Insulin Aspart (Insulin Aspart Per Unit) 0 units SC ACHS [facility] Stop: 02/23/22 02:02 Last Admin: 01/24/22 16:32 Dose: Not Given Documented By: SOLE Co-signed By: Admin: 01/24/22 16:32 Dose: Not Given Documented By: SOLE Co-signed By: AB Admin: 01/24/22 16:31 Dose: Not Given Documented By: SOLE Co-signed By: AB Admin: 01/24/22 08:43 Dose: Not Given Documented By: Co-signed By: SONIA Insulin Aspart (Insulin Aspart Per Unit) 0 units SC Q6 [facility] Stop: 02/24/22 00:00 Last Admin: 01/25/22 05:33 Dose: Not Given Documented By: Admin: 01/24/22 23:57 Dose: Not Given Documented By: DPK Insulin Aspart (Insulin Aspart Per Unit) 0 units SC ACHS [facility] Stop: 02/24/22 00:00 Last Admin: 01/26/22 12:56 Dose: 3 units Documented By: ERLIN Co-signed By: FELA Admin: 01/26/22 09:03 Dose: 2 units Documented By: ERLIN Co-signed By: PITO Admin: 01/25/22 20:58 Dose: Not Given Documented By: (2) Admin: 01/25/22 18:05 Dose: Not Given Documented By: ERLIN Co-signed By: JOHN Admin: 01/25/22 12:54 Dose: 1 units Documented By: ERLIN Co-signed By: PITO Losartan Potassium (Losartan Potassium 50 Mg Tab) 100 mg PO [facility] Stop: 02/23/22 08:59 Last Admin: 01/26/22 08:47 Dose: 100 mg Documented By: Admin: 01/25/22 09:42 Dose: 100 mg Documented By: Admin: 01/24/22 09:30 Dose: 100 mg Documented By: AB Metoprolol Succinate (Metoprolol Succ 50mg Ext Rel Tab) 100 mg PO [facility] Stop: 02/23/22 08:59 Last Admin: 01/26/22 08:46 Dose: 100 mg Documented By: Admin: 01/25/22 09:43 Dose: 100 mg Documented By: Admin: 01/24/22 09:30 Dose: 100 mg Documented By: AB Pantoprazole Sodium (Pantoprazole 40 Mg Tab) 40 mg PO [facility] Stop: 02/23/22 08:59 Last Admin: 01/26/22 08:47 Dose: 40 mg Documented By: Admin: 01/25/22 09:41 Dose: 40 mg Documented By: Admin: 01/24/22 08:40 Dose: 40 mg Documented By: AB Potassium Chloride (Potassium Chloride Crtab 20 Meq Tabcr) 40 meq PO NOW STA Stop: 01/24/22 10:31 Last Admin: 01/24/22 11:31 Dose: 40 meq Documented By: AB Rosuvastatin Calcium (Rosuvastatin Calcium 10 Mg Tab) 10 mg PO [facility] Stop: 02/23/22 08:59 Last Admin: 01/26/22 08:48 Dose: 10 mg Documented By: Admin: 01/25/22 09:44 Dose: 10 mg Documented By: Admin: 01/24/22 09:31 Dose: 10 mg Documented By: AB Saccharomyces Boulardii (Saccharomyces Boulardii 250 Mg Cap) 250 mg PO DAILY [facility] Stop: 02/24/22 08:59 Last Admin: 01/26/22 08:48 Dose: 250 mg Documented By: Admin: 01/25/22 09:49 Dose: 250 mg Documented By: CS Medical Decision Making Differential Diagnosis Differential diagnoses includes but is not limited to gastritis, peptic ulcer disease, GERD, gallbladder disease, pancreatitis, small bowel obstruction, acute coronary syndrome, pericarditis, ischemic bowel, irritable bowel disease, irritable bowel syndrome, appendicitis, diverticulitis, malignancy, hernia, urinary tract infection, torsion, [/ectopic (if female)], per foration, trauma, infectious. Medical Records Attestation: I reviewed the patient's medical records. Home Medications Current Medication List: was personally reviewed by me Laboratory Data Attestation: I reviewed the patient's lab results. Result diagrams: 01/26/22 04:48 01/26/22 04:48 Lab Results 01/23/22 01/23/22 01/23/22 Range/Units 18:46 18:46 18:46 WBC 14.23 H (4.8-10.8) K/ul RBC 4.16 (3.93-5.22) M/uL Hgb 12.1 (12.0-16.0) g/dl Hct 35.7 (34.1-44.9) % MCV 85.8 (80.0-100.0) fL MCH 29.1 (25.0-34.0) pg MCHC 33.9 (32.0-36.0) g/dL RDW Std Deviation 42.3 (36.4-46.3) fL RDW Coeff of Luh 13.5 (11.5-14.5) % Plt Count 340 (130-400) K/uL MPV 9.4 (9.4-12.3) fL Immature Gran % (Auto) 0.6 % Neut % (Auto) 63.9 % Lymph % (Auto) 26.0 % Coffee % (Auto) 8.0 % Eos % (Auto) 0.9 % Baso % (Auto) 0.6 % Neut # (Auto) 9.09 H (1.4-6.5) K/uL Lymph # (Auto) 3.70 H (1.2-3.4) K/uL Coffee # (Auto) 1.14 H (0.24-0.82) K/uL Eos # (Auto) 0.13 (0-0.50) K/uL Baso # (Auto) 0.08 (0-0.2) K/uL Immature Gran # (Auto) 0.09 H (0.00-0.02) K/uL Sodium 130 L (136-145) mmol/L Potassium 3.5 (3.5-5.1) mmol/L Chloride 94 L (98-107) mmol/L Carbon Dioxide 26 (21-32) mmol/L Anion Gap 10 (3-11) BUN 18 (6-23) mg/dl Creatinine 0.78 (0.6-1.2) mg/dl Est Cr Clr Drug Dosing 65.6 ml/min Est GFR ( Amer) 88.0 ml/min Est GFR (Non-Af Amer) 76.0 ml/min BUN/Creatinine Ratio 23.1 H (10-20) Glucose 125 H (70-99(Fasting)) mg/dl Estimat Average Glucose mg/dl Hemoglobin A1c (4.5-5.6) % Calcium 9.6 (8.5-10.1) mg/dl Magnesium 2.0 (1.7-2.4) mg/dl Total Bilirubin 0.9 (0.2-1.0) mg/dl AST 12 L (13-39) U/L ALT 12 (7-52) U/L Alkaline Phosphatase 60 (34-104) U/L Total Protein 8.1 (6.0-8.3) gm/dl Albumin 4.5 (3.4-5.0) gm/dl Globulin 3.6 (2.5-4.0) gm/dl Albumin/Globulin Ratio 1.3 (0.9-2) Lipase 25 (11-82) U/L TSH 2.608 (0.300-4.500) uIu/ml SARS-CoV-2, RNA, NAAT (NEGATIVE) 01/23/22 01/24/22 Range/Units 18:46 00:15 WBC (4.8-10.8) K/ul RBC (3.93-5.22) M/uL Hgb (12.0-16.0) g/dl Hct (34.1-44.9) % MCV (80.0-100.0) fL MCH (25.0-34.0) pg MCHC (32.0-36.0) g/dL RDW Std Deviation (36.4-46.3) fL RDW Coeff of Luh (11.5-14.5) % Plt Count (130-400) K/uL MPV (9.4-12.3) fL Immature Gran % (Auto) % Neut % (Auto) % Lymph % (Auto) % Coffee % (Auto) % Eos % (Auto) % Baso % (Auto) % Neut # (Auto) (1.4-6.5) K/uL Lymph # (Auto) (1.2-3.4) K/uL Coffee # (Auto) (0.24-0.82) K/uL Eos # (Auto) (0-0.50) K/uL Baso # (Auto) (0-0.2) K/uL Immature Gran # (Auto) (0.00-0.02) K/uL Sodium (136-145) mmol/L Potassium (3.5-5.1) mmol/L Chloride (98-107) mmol/L Carbon Dioxide (21-32) mmol/L Anion Gap (3-11) BUN (6-23) mg/dl Creatinine (0.6-1.2) mg/dl Est Cr Clr Drug Dosing ml/min Est GFR ( Amer) ml/min Est GFR (Non-Af Amer) ml/min BUN/Creatinine Ratio (10-20) Glucose (70-99(Fasting)) mg/dl Estimat Average Glucose 166 mg/dl Hemoglobin A1c 7.4 H (4.5-5.6) % Calcium (8.5-10.1) mg/dl Magnesium (1.7-2.4) mg/dl Total Bilirubin (0.2-1.0) mg/dl AST (13-39) U/L ALT (7-52) U/L Alkaline Phosphatase (34-104) U/L Total Protein (6.0-8.3) gm/dl Albumin (3.4-5.0) gm/dl Globulin (2.5-4.0) gm/dl Albumin/Globulin Ratio (0.9-2) Lipase (11-82) U/L TSH (0.300-4.500) uIu/ml SARS-CoV-2, RNA, NAAT NEGATIVE (NEGATIVE) MDM Narrative Patient sent in after having abnormal outpatient labs and imaging. Case di scussed with on-call hospitalist. General surgery consulted as a precaution. IV Zosyn and fluids ordered on the patient. Discussed all results with patient as well as risk given complicated CT findings. They verbalized understanding were in agreement with plan. Impression & Plan Abdominal pain, Diverticular disease of large intestine with complication, Hyponatremia Discharge Plan Visit Data Chief Complaint: Rectal Pain Stated Complaint: ABCESS IN COLON ED Provider: Rubi Rizvi Discharge Problem: Abdominal pain, Diverticular disease of large intestine with complication, Hyponatremia Patient Disposition: Admitted As Inpatient Discharge Instructions Interventions: ED Discharge Assessment Last Done: 01/24/22 03:26
== END 2022-01-26 14:43 | disposition home or self-care (01) | DRG 392 ==
LOC: ED 18:10 → EDINP 01-24 00:23 → INTOOBSV 01-24 00:23 → 3N 01-24 03:26
DX: K57.92 Diverticulitis of intestine, part unspecified, without perforation or abscess without bleeding; Z88.6 Allergy status to analgesic agent; M19.90 Unspecified osteoarthritis, unspecified site; Z88.2 Allergy status to sulfonamides; E78.5 Hyperlipidemia, unspecified; E87.1 Hypo-osmolality and hyponatremia; Z79.82 Long term (current) use of aspirin; Z83.3 Family history of diabetes mellitus; I10 Essential (primary) hypertension; E11.9 Type 2 diabetes mellitus without complications; Z79.84 Long term (current) use of oral hypoglycemic drugs; Z80.0 Family history of malignant neoplasm of digestive organs